=== PATIENT | female | born 1970 | race Caucasian/White ===

== ENCOUNTER 2017-01-21 12:52 | Emergency (ER) | payer OTHER ==
[~2017-01-21] VITALS: Ht 162.6 cm; Wt 104.5 kg
[2017-01-21] MEDS ORDERED: METF500T4 PO (13:04)
[2017-01-21 13:12] LABS: GLUCOSE,POINT OF CARE 140 MG/DL (70-110)
[2017-01-21] MEDS ORDERED: ONDANSETRON HCL 4 MG/2 ML VIAL IVP ONE (14:30)
[2017-01-21] MEDS ORDERED: KETOROLAC TROMETHAMINE 30 MG/ML VIAL IVP ONE (14:30)
[2017-01-21 15:13] LABS: BASOPHILS % (AUTO) 0.8 % (0.0-2.0); EOSINOPHILS % (AUTO) 2.6 % (1.0-6.0); HEMATOCRIT 40.2 % (36-46); HEMOGLOBIN 13.7 g/dL (12.0-16.0); LYMPHOCYTES # (AUTO) 2.4 K/uL (1.0-4.8); LYMPHOCYTES % (AUTO) 30.7 % (22.0-44.0); MEAN CORPUSCULAR VOLUME 91 fL (80-100); MONOCYTES # (AUTO) 0.7 K/uL (0.1-1.0); MONOCYTES % (AUTO) 9.2 % (2.0-9.0); NEUTROPHILS # (AUTO) 4.5 K/uL (1.8-7.7); NEUTROPHILS % (AUTO) 56.7 % (40.0-70.0); PLATELET COUNT (AUTO) 246 K/uL (150-450); RED BLOOD CELL COUNT(AUTO) 4.42 MIL/uL (4.00-5.20); RED CELL DISTRIBUTION WIDTH 13.2 % (11.5-14.5)
[2017-01-21 15:29] LABS: INR 0.9 (0.9-1.1)
[2017-01-21 15:47] LABS: GLUCOSE,POINT OF CARE 95 MG/DL (70-110)
[2017-01-21 16:06] LABS: B-TYPE NATRIURETIC PEPTIDE 8 pg/mL (0-100)
[2017-01-21 16:12] LABS: ANION GAP 7 mmol/L (8-16); CALCIUM, TOTAL 8.7 mg/dL (8.8-10.5); CARBON DIOXIDE 28 mmol/L (22-29); CHLORIDE 103 mmol/L (98-107); GLOMERULAR FILTR. RATE CALC > 60 mL/min (>60); GLUCOSE,RANDOM 91 mg/dL (70-110); SODIUM SERUM 138 mmol/L (136-145); UREA NITROGEN, BLOOD 12 mg/dL (7-18)
[2017-01-21 16:19] LABS: ALANINE AMINOTRANSFERASE 46 U/L (12-78); ALBUMIN 3.6 g/dL (3.4-5.0); ALKALINE PHOSPHATASE 82 U/L (46-116); ASPARTATE AMINOTRANSFERASE 20 U/L (15-37); BILIRUBIN,TOTAL 0.3 mg/dL (0.1-1.0); CREATINE KINASE, TOTAL 42 U/L (26-192); TOTAL PROTEIN, SERUM 7.7 g/dL (6.4-8.2)
[2017-01-21 17:01] LABS: APPEARANCE,URINE TURBID (CLEAR); BILIRUBIN,URINE NEGATIVE (NEGATIVE); GLUCOSE, URINE (UA) NEGATIVE (NEGATIVE); KETONES,URINE NEGATIVE (NEGATIVE); LEUKOCYTE ESTERASE ,URINE TRACE (NEGATIVE); NITRATE,URINE NEGATIVE (NEGATIVE); OCCULT BLOOD,URINE NEGATIVE (NEGATIVE); PH,URINE 7.5 (5.0-8.0); PROTEIN,URINE NEGATIVE (NEGATIVE); UROBILINOGEN,URINE 0.2 mg/dL (<=1.0)
[2017-01-21 17:07] LABS: HCG,QUAL RESULT NEGATIVE (NEGATIVE)
[2017-01-21 17:10] LABS: BACTERIA,URINE Few /HPF (None Seen); RBC,URINE None Seen /HPF (0-2); SQUAMOUS EPITHELIAL CELL,UR Few /LPF (None Seen)
[2017-01-21 17:11] LABS: AMORPHOUS SEDIMENT,UR Many /LPF (None Seen)
[2017-01-21 17:59] VITALS: BP 126/57
== END 2017-01-21 18:02 | disposition home or self-care (01) ==
LOC: EMS 12:53
DX: R07.89 Other chest pain (principal); E11.9 Type 2 diabetes mellitus without complications; E78.00 Pure hypercholesterolemia, unspecified
CPT/HCPCS: 36415; 71010; 80053; 81001; 82550; 82962; 83880; 84484; 84703; 85025; 85610; 85730; 93005; 96374; 96375; 99285; J1885; J2405

== ENCOUNTER 2022-07-08 22:13 | Emergency (ER) | payer OTHER ==
[~2022-07-08] VITALS: Ht 162.6 cm; Wt 74.1 kg
[~2022-07-08 22:13] MED LIST: METF-1211 PO
[2022-07-08 22:37] VITALS: BP 127/80
[2022-07-08] MEDS ORDERED: SODIUM CHLORIDE 0.9% 1,000 ML IV ONE (23:15)
[2022-07-08] MEDS ORDERED: IBUPROFEN 600 MG TABLET PO ONE (23:15)
[2022-07-08 23:50] LABS: CALCIUM, TOTAL 8.7 mg/dL (8.8-10.5); CREATININE 1.02 mg/dL (0.60-1.30)
[2022-07-09] MEDS ORDERED: INSULIN REGULAR, HUMAN 100 UNITS/ML IVP ONE
[2022-07-09] MEDS ORDERED: IBUP-1492 PO (01:15)
[2022-07-09 01:46] LABS: GLUCOMETER DEV NAME(LOC) ERT.5; GLUCOSE,POINT OF CARE 201 MG/DL (70-110)
== END 2022-07-09 01:39 | disposition home or self-care (01) ==
LOC: EMS 22:14
DX: S93.401A Sprain of unspecified ligament of right ankle, initial encounter (principal); E11.65 Type 2 diabetes mellitus with hyperglycemia; E78.00 Pure hypercholesterolemia, unspecified; Z90.89 Acquired absence of other organs; Z79.84 Long term (current) use of oral hypoglycemic drugs; W01.0XXA Fall on same level from slipping, tripping and stumbling without subsequent striking against object, initial encounter; Y93.89 Activity, other specified; Y92.89 Other specified places as the place of occurrence of the external cause; Y99.8 Other external cause status
CPT/HCPCS: 99284; 96361; 80048; 82962; 36415; 73610; 96374; 82948; J7030; J1815; 29540

== ENCOUNTER 2024-03-05 19:10 | Emergency (ER) | payer OTHER ==
[~2024-03-05] VITALS: Ht 162.6 cm; Wt 87.3 kg
[~2024-03-05 19:10] MED LIST changes: +IBUP-1492 PO
[2024-03-05 19:24] VITALS: BP 156/71; PULSE 92; RESP 18; TEMP 98; O2SAT 100
== END 2024-03-05 21:28 | disposition left against medical advice (07) ==
LOC: EMS 19:10
DX: M25.531 Pain in right wrist (principal); M25.571 Pain in right ankle and joints of right foot; Z53.21 Procedure and treatment not carried out due to patient leaving prior to being seen by health care provider
CPT/HCPCS: 73610-TC

== ENCOUNTER 2025-01-12 11:27 | Emergency (ER) | payer OTHER ==
[~2025-01-12] VITALS: Ht 160 cm; Wt 98.0 kg
[2025-01-12] MEDS ORDERED: IBUP-1492 PO (13:57)
[2025-01-12] MEDS ORDERED: LIDO-57 TP (13:57)
[2025-01-12] MEDS: LIDOCAINE 5% TRANSDERMAL PATCH TD ONE (14:23)
[2025-01-12] MEDS: KETOROLAC TROMETHAMINE 60 MG/2 ML VIAL IM ONE (14:23)
[2025-01-12 14:32] VITALS: BP 134/90; PULSE 97; RESP 16; TEMP 98.3; O2SAT 98
== END 2025-01-12 14:45 | disposition home or self-care (01) ==
LOC: EMS 11:27
DX: M54.12 Radiculopathy, cervical region (principal); E11.9 Type 2 diabetes mellitus without complications; E78.00 Pure hypercholesterolemia, unspecified; Z90.49 Acquired absence of other specified parts of digestive tract; Z79.1 Long term (current) use of non-steroidal anti-inflammatories (NSAID); Z79.899 Other long term (current) drug therapy
CPT/HCPCS: 99283; 82962; 96372; J1885